=== PATIENT | male | born 1965 | race African-American/Black ===

== ENCOUNTER 2016-07-09 05:43 | Emergency (ER) | payer OTHER ==
[2016-07-09 05:55] VITALS: BP 153/94; BMI 29.5
--- NOTE | 2016-07-09 06:00 | DR.GENAD ---
HPI - PCP Primary Care Physician: NFSelin - HPI Comment HPI Comment: PATIENT HAVE MULTIPLE DENTAL CARIES AND GINGIVA INLATION. SINCE 03: 00 AM, PATIENT HAVE HAD INCREASING TOOTHACHE, NO FEVER. HAVING EAR ACHE AND HEAD ACHE. - Complaint/Symptoms Chief Complaint Doctors Comments: TOOTH ACHE, HEADACHE AND EAR ACHE TIMES SEVERAL HOURS. Chief Complaint:: TOOTHACHE, ROGER, LEFT EARACHE, ONSET 0300, Self Treatment fo Chief Complaint: MOTRIN - Nurses notes reviewed Nurses Notes Review: Yes - Source History Provided: Patient - Mode of Arrival Mode of Arrival: Ambulatory - Timing Onset of Chief Complaint: 07/09/16 Came on: Gradually - Duration Duration: Constant Duration: Days - Severity Severity: Moderate PMH - PMH Past Medical History: Yes Past Medical History: Diabetes, Gout, Seizures Past Surgical History: Yes Surgical History: Ortho Surgery - Family History History of Family Medical Conditions: Yes Family Medical History: Hypertension - Social History Does patient currently use any type of tobacco product: Yes Have you used tobacco products in the last 12 months: Yes Type of Tobacco Use: Cigarettes Does any household member use tobacco: Yes Alcohol Use: Occasionally Do you use any recreational Drugs:: No Lives With: Alone Lives Where: Home - infectious screening In the last 2 months have you had wt loss of >10#?: NO Have you had fever, night sweats or hemotysis?: No Have you traveled outside the country in the last 6 months?: No Isolation: Standard ROS - Review of Systems Constitutional: No Symptoms Reported. negative: Chills, Fever Eyes: No Symptoms Reported. negative: Eye Pain, Discharge ENTM: Ear Pain, Mouth Pain, Loose Teeth (DENTAL CARIES, GINGIVA INFLAMATION). negative: Ear Discharge Respiratoy: No Symptoms Reported Cardiovascular: No Symptoms Reported Gastrointestinal/Abdominal: No Symptoms Reported Genitourinary: No Symptoms Reported Neurological: Headache Musculoskeletal: No Symptoms Reported Integumentary: No Symptoms Reported Hematologic/Lymphatic: No Symptoms Reported Endocrine: No Symptoms Reported All Other Systems: Reviewed and Negative PE - Vital Signs Vitals: Temperature 98.2 F Pulse Rate 84 Respiratory Rate 16 Blood Pressure [Left Arm] 120/82 Blood Pressure [Right Arm] 114/72 Blood Pressure 153/94 O2 Sat by Pulse Oximetry 97 - General Limitations: No Limitations General Appearance: Alert - Head Head Exam: Normal Inspection - Eyes Eye exam: Normal Appearance - ENT ENT Exam: Normal External Ear Exam External Ear Exam: Normal External Inspection TM/Canal Exam: Bilateral Normal Nose Exam: Normal Nose Exam Mouth Exam: Other (DENTAL CARIES, GINGIVA INFLAMATION UPPER MIDDLE TEETH.) Throat Exam: Normal Inspection - Neck Neck Exam: Trachea Midline - Chest Chest Inspection: Symmetric Chest Wall Rise - Respiratory Respiratory Exam: Normal Lung Sounds Bilat Respiratory Exam: Bilateral Clear to Auscultation - Cardiovascular Cardiovascular Exam: Regular Rate, Normal Rhythm, Normal Heart Sounds - Abdominal Exam Abdominal Exam: Normal Bowel Sounds, Soft. negative: Tenderness - Extremities Extremities Exam: Normal Inspection - Back Back Exam: Normal Inspection - Neurologic Neurological Exam: Alert, Oriented X3 - Psychiatric Psychiatric Exam: Normal Affect, Normal Mood - Skin Skin Exam: Normal Color MDM - Differential Diagnosis Differential Diagnosis: DENTAL PAIN, GINGIVITIS Course - Treatment Treatment: SEE ORDERS - Education/Counseling Education/Counseling: Patient, Education Educated On: Treatment, Diagnosis, Needs for Follow Up - Diagnosis Discharge Problem: Gingivitis, acute, Pain, dental - Discharge Plan Condition: Stable Prescriptions: Acetaminophen/Codeine Tab [TYLENOL w/CODEINE #3 (300 MG/30 MG) *] 1 tab PO Q4- 6H PRN #15 tab PRN Reason: Pain Amoxicillin [Amoxil 875 mg] 875 mg PO BID #20 tab - Follow ups/Referrals Follow ups/Referrals: NFD,None [Primary Care Provider] - 3 days - Instructions Instructions: Dental Pain, Gingivitis, [id number] Additional Instructions: RETURN TO ED IF WORSE. FOLLOW UP WITH DENTIST OF YOUR CHOICE.
[2016-07-09] MEDS ORDERED: TORADOL TAB PO ONE ×2 (06:12→06:22)
[2016-07-09] MEDS ORDERED: AMOXIL CAP 500 MG PO ONE ×2 (06:12→06:23)
== END 2016-07-09 06:34 | disposition home or self-care (01) ==
LOC: ER 05:43
DX: K05.10 Chronic gingivitis, plaque induced (principal); K08.89 Other specified disorders of teeth and supporting structures
CPT/HCPCS: 99282

== ENCOUNTER 2017-05-17 20:19 | Emergency (ER) | payer OTHER ==
[2017-05-17 20:28] VITALS: BMI 28.3
--- NOTE | 2017-05-17 20:56 | DR.GENAD ---
HPI - PCP Primary Care Physician: SAMM DENVER - HPI Comment HPI Comment: HISTORY BELOW. - Complaint/Symptoms Chief Complaint Doctors Comments: SUDDEN ONSET OF SEVERE HEADACHE AND MUSCLE TWICHING AND SHAKING THIS EVENING. HAVE SEIZURE DISORDER AND TAKES DILANTIN. DID NOT HAVE SEIZURE. DENIES TRAUMA. Chief Complaint:: SHAKES, HEADACHE - Nurses notes reviewed Nurses Notes Review: Yes - Source History Provided: Patient - Mode of Arrival Mode of Arrival: Ambulatory - Timing Onset of Chief Complaint: 05/17/17 Came on: Suddenly - Duration Duration: Constant Duration: Hours - Severity Severity: Moderate PMH - PMH Past Medical History: Yes Past Medical History: Diabetes, [place], Seizures Past Surgical History: No Surgical History: Ortho Surgery - Family History History of Family Medical Conditions: Yes Family Medical History: Hypertension - Social History Does patient currently use any type of tobacco product: Yes Have you used tobacco products in the last 12 months: Yes Type of Tobacco Use: Cigarettes Does any household member use tobacco: No Alcohol Use: Occasionally Do you use any recreational Drugs:: No Lives With: Family Lives Where: Home - infectious screening In the last 2 months have you had wt loss of >10#?: NO Have you had fever, night sweats or hemotysis?: No Have you traveled outside the country in the last 6 months?: No Isolation: Standard ROS - Review of Systems Constitutional: No Symptoms Reported Eyes: No Symptoms Reported ENTM: No Symptoms Reported Respiratoy: No Symptoms Reported Cardiovascular: No Symptoms Reported Gastrointestinal/Abdominal: No Symptoms Reported Genitourinary: No Symptoms Reported Neurological: Headache, Other (TWICHING AND SHAKING.) Musculoskeletal: Other (MUSCLE TWICHING) Integumentary: No Symptoms Reported Hematologic/Lymphatic: No Symptoms Reported Endocrine: No Symptoms Reported All Other Systems: Reviewed and Negative PE - Vital Signs Vitals: Temperature 99.1 F Pulse Rate [Apical] 84 Pulse Rate 92 Respiratory Rate 16 Blood Pressure [Left Arm] 117/78 Blood Pressure [Right Arm] 114/72 Blood Pressure 179/86 O2 Sat by Pulse Oximetry 97 - General Limitations: No Limitations General Appearance: Alert - Head Head Exam: Normal Inspection - Eyes Eye exam: Normal Appearance - ENT ENT Exam: Normal External Ear Exam External Ear Exam: Normal External Inspection TM/Canal Exam: Bilateral Normal Nose Exam: Normal Nose Exam Mouth Exam: Normal Inspection Throat Exam: Normal Inspection - Neck Neck Exam: Trachea Midline - Chest Chest Inspection: Symmetric Chest Wall Rise - Respiratory Respiratory Exam: Normal Lung Sounds Bilat Respiratory Exam: Bilateral Clear to Auscultation - Cardiovascular Cardiovascular Exam: Regular Rate, Normal Rhythm, Normal Heart Sounds - Abdominal Exam Abdominal Exam: Normal Bowel Sounds, Soft. negative: Tenderness - Extremities Extremities Exam: Normal Inspection - Back Back Exam: Normal Inspection - Neurologic Neurological Exam: Alert, Oriented X3 - Psychiatric Psychiatric Exam: Normal Affect, Normal Mood - Skin Skin Exam: Normal Color MDM - Differential Diagnosis Differential Diagnosis: CVA, MIGRAINE HEADACHE, DILANTIN TOXICITY, SEPSIS Course - Treatment Treatment: SEE ORDERS. IM MED IN ED. HEADACHE IMPROVING. - Reevaluation 1st: Improved - Education/Counseling Education/Counseling: Patient, Education Educated On: Treatment, Diagnosis, Needs for Follow Up ROR - Labs Reviewed Laboratory Results Reviewed?: Yes Result Diagrams: 05/17/17 21:10 05/17/17 21:10 Laboratory: WBC 7.8 X10^3/uL (3.6-10.0) 05/17/17 21:10 RBC 5.12 X10^6/uL (4.7-6.0) 05/17/17 21:10 Hgb 16.6 g/dL (13.5-18.0) 05/17/17 21:10 Hct 47.2 % (42.0-54.0) 05/17/17 21:10 MCV 92.1 fL (80.0-100.0) 05/17/17 21:10 MCH 32.4 pg (27.0-34.0) 05/17/17 21:10 MCHC 35.2 g/dL (33.0-35.0) H 05/17/17 21:10 RDW 13.3 % (11.6-16.5) 05/17/17 21:10 Plt Count 270 X10^3/uL (150.0-450.0) 05/17/17 21:10 MPV 7.0 fL (7.4-11.0) L 05/17/17 21:10 Neut % (Auto) 53.3 % (42.0-75.0) 05/17/17 21:10 Lymph % (Auto) 35.6 % (21.0-51.0) 05/17/17 21:10 [place] % (Auto) 9.3 % (0.0-13.0) 05/17/17 21:10 Eos % (Auto) 1.3 % (0.9-2.9) 05/17/17 21:10 Baso % (Auto) 0.5 % (0.2-1.0) 05/17/17 21:10 Neut # (Auto) 4.2 x10^3/uL (2.2-4.8) 05/17/17 21:10 Lymph # (Auto) 2.8 X10^3/uL (1.3-2.9) 05/17/17 21:10 [place] # (Auto) 0.7 x10^3/uL (0.3-0.8) 05/17/17 21:10 Eos # (Auto) 0.1 x10^3/uL (0.0-0.2) 05/17/17 21:10 Baso # (Auto) 0.0 X10^3/uL (0.0-0.1) 05/17/17 21:10 Absolute Nucleated RBC 0.1 /100WBC 05/17/17 21:10 Sodium 140 mmol/L (136-145) 05/17/17 21:10 Corrected Sodium 142 mmol/L (136-145) 05/17/17 21:10 Potassium 3.6 mmol/L (3.5-5.1) 05/17/17 21:10 Chloride 104 mmol/L (98-107) 05/17/17 21:10 Carbon Dioxide 26.0 mmol/L (21-32) 05/17/17 21:10 BUN 15 mg/dL (7-18) 05/17/17 21:10 Creatinine 1.35 mg/dL (0.70-1.30) H 05/17/17 21:10 Est GFR (MDRD) Af Amer > 60 (>60) 05/17/17 21:10 Est GFR (MDRD) Non-Af 59 (>60) 05/17/17 21:10 Glucose 186 mg/dL (65-99) H 05/17/17 21:10 Calcium 8.4 mg/dL (8.5-10.1) L 05/17/17 21:10 Corrected Calcium TNP 05/17/17 21:10 Total Bilirubin 0.30 mg/dL (0.2-1.0) 05/17/17 21:10 AST 23 Units/L (15-37) 05/17/17 21:10 ALT 30 Units/L (12-78) 05/17/17 21:10 Alkaline Phosphatase 117 Units/L (46-116) H 05/17/17 21:10 Creatine Kinase 356 Units/L (39-308) H 05/17/17 21:10 CK-MB (CK-2) 1.6 ng/mL (0-4.0) 05/17/17 21:10 CK/CKMB % Calc 0.5 % (<4) 05/17/17 21:10 Troponin I < 0.02 ng/mL (0-1.5) 05/17/17 21:10 Total Protein 7.1 g/dL (6.4-8.2) 05/17/17 21:10 Albumin 3.6 g/dL (3.4-5.0) 05/17/17 21:10 Globulin 3.5 g/dL (2.5-4.5) 05/17/17 21:10 Albumin/Globulin Ratio 1.0 Ratio (1.1-2.1) L 05/17/17 21:10 Phenytoin 3.8 ug/mL (10-20) L 05/17/17 21:10 - XRAY XRAY Findings: REPORT DISCUSS WITH PATIENT. - Diagnosis Discharge Problem: Dilantin level too low, Musculoskeletal pain Headache Qualifiers: Headache type: unspecified Headache chronicity pattern: acute headache Intractability: intractable Qualified Code(s): R51 - Headache - Discharge Plan Disposition: 01 HOME, SELF-CARE Condition: Stable Prescriptions: [id number] [Fioricet Tab] 1 tab PO Q8H PRN #30 tab PRN Reason: Migraine Headache - Follow ups/Referrals Follow ups/Referrals: NFD,None [Primary Care Provider] - 2 days - Instructions Instructions: Migraine Headache, [id number], Musculoskeletal Pain
[2017-05-17 21:21] LABS: BASOPHILS % (AUTO) 0.5 % (0.2-1.0); EOSINOPHILS # (AUTO) 0.1 x10^3/uL (0.0-0.2); EOSINOPHILS % (AUTO) 1.3 % (0.9-2.9); HEMATOCRIT 47.2 % (42.0-54.0); HEMOGLOBIN 16.6 g/dL (13.5-18.0); LYMPHOCYTES # (AUTO) 2.8 X10^3/uL (1.3-2.9); LYMPHOCYTES % (AUTO) 35.6 % (21.0-51.0); MEAN CORPUSCULAR HEMOGLOBIN 32.4 pg (27.0-34.0); MEAN CORPUSCULAR HGB CONC 35.2 g/dL (33.0-35.0); MEAN CORPUSCULAR VOLUME 92.1 fL (80.0-100.0); MONOCYTES # (AUTO) 0.7 x10^3/uL (0.3-0.8); MONOCYTES % (AUTO) 9.3 % (0.0-13.0); NEUTROPHILS # (AUTO) 4.2 x10^3/uL (2.2-4.8); NEUTROPHILS % (AUTO) 53.3 % (42.0-75.0); PLATELET COUNT 270 X10^3/uL (150.0-450.0); RED BLOOD COUNT 5.12 X10^6/uL (4.7-6.0); RED CELL DISTRIBUTION WIDTH 13.3 % (11.6-16.5); WHITE BLOOD COUNT 7.8 X10^3/uL (3.6-10.0)
[2017-05-17 21:39] LABS: BLOOD UREA NITROGEN 15 mg/dL (7-18); CALCIUM 8.4 mg/dL (8.5-10.1); CHLORIDE 104 mmol/L (98-107); COR NA(FOR HYPERGLY) 142 mmol/L (136-145); CREATININE 1.35 mg/dL (0.70-1.30); SODIUM 140 mmol/L (136-145); TROPONIN I < 0.02 ng/mL (0-1.5); eGFR BLACK RACES > 60 (>60); eGFR NON BLACK RACES 59 (>60)
--- NOTE | 2017-05-17 21:40 | RAD ---
HISTORY: Shaking Study: PA and lateral views of the chest. Comparison: None. Findings: The cardiomediastinal silhouette is normal. No focal consolidations, pleural effusions or pneumothora x. Osseous structures demonstrate no acute abnormality. IMPRESSION: 1. No acute cardiopulmonary process. Reported By:
[2017-05-17 21:42] LABS: ALANINE AMINOTRANSFERASE 30 Units/L (12-78); ALBUMIN 3.6 g/dL (3.4-5.0); ALKALINE PHOSPHATASE 117 Units/L (46-116); ASPARTATE AMINO TRANSFERASE 23 Units/L (15-37); CKMB % 0.5 % (<4); CREATINE KINASE 356 Units/L (39-308); CREATINE KINASE MB 1.6 ng/mL (0-4.0); TOTAL PROTEIN 7.1 g/dL (6.4-8.2)
--- NOTE | 2017-05-17 21:42 | CT ---
HISTORY: Tremors Study: CT head without contrast Comparison: 07/20/2015 Technique: Axial noncontrast images with coronal and sagittal reformats. Dose reduction procedures we re used with mA/kv adjusted for body size. Findings: The ventricles are normal in size shape and position. There is evidence for an old left inferior fron totemporal CVA unchanged from the prior examination. There is no definite evidence for recent CVA, he morrhage, mass lesion, or extra-axial fluid collection. The visualized sinuses appear clear. The calv arium is intact. 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
[2017-05-17] MEDS ORDERED: DILANTIN CAP 100 MG EXT REL PO ONE ×2 (22:13→22:16)
[2017-05-17] MEDS ORDERED: TORADOL 60 MG VIAL IM ONE (22:13)
[2017-05-17] MEDS ORDERED: TORADOL 60 MG VIAL ONE (22:15)
[2017-05-17 22:41] VITALS: BP 117/78
== END 2017-05-17 22:38 | disposition home or self-care (01) ==
LOC: ER 20:34
DX: R51 Headache (principal); M79.1 Myalgia; R94.31 Abnormal electrocardiogram [ECG] [EKG]; I25.2 Old myocardial infarction; R89.2 Abnormal level of other drugs, medicaments and biological substances in specimens from other organs, systems and tissues
CPT/HCPCS: 36415; 70450; 71046; 80053; 80185; 82550; 82553; 84484; 85025; 93005; 93010; 96372; 99283; 99285; J1885